=== PATIENT | male | born 1955 | race African-American/Black ===

== ENCOUNTER 2017-08-14 21:14 | Emergency (ER) | payer MEDICARE, MEDICAID ==
[~2017-08-14] VITALS: Ht 165.1 cm; Wt 75.0 kg
[~2017-08-14 21:14] MED LIST: ATEN50TA PO; CLOP75TA16 PO; ROSU10TA PO
[2017-08-14] MEDS ORDERED: KETOROLAC 60MG/2ML VIAL IM ONE (22:00)
[2017-08-14] MEDS ORDERED: MORPHINE SULFATE 10 MG/ML CPJ IM ONE (23:15)
[2017-08-15 00:17] VITALS: BP 137/66
== END 2017-08-15 00:23 | disposition home or self-care (01) ==
LOC: ER 21:14
DX: M25.552 Pain in left hip (principal); M54.9 Dorsalgia, unspecified
CPT/HCPCS: 73502; 96372; 99284; J1885; J2270

== ENCOUNTER 2017-11-20 11:32 | Day surgery (SDC) | payer MEDICARE, MEDICAID ==
[~2017-11-20] VITALS: Ht 177.8 cm; Wt 72.6 kg
[2017-11-20] MEDS ORDERED: HEPARIN 1,000 UNITS PREMIX 0 ML IV ONE (12:43)
[2017-11-20] MEDS ORDERED: LIDOCAINE HCL 1% 20ML VIAL (Pyxis) INJ ONE (12:43)
[2017-11-20] MEDS ORDERED: ASPI-1160 PO (13:03)
[2017-11-20] MEDS ORDERED: OXYC30TA89 PO (13:03)
[2017-11-20] MEDS ORDERED: IOHEXOL-300 100 ML BOTTLE ONE (13:08)
[2017-11-20] MEDS ORDERED: FENTANYL CITRATE/PF 50MCG/ML 2ML VIAL ONE (13:18)
[2017-11-20] MEDS ORDERED: MIDAZOLAM HCL 2 MG/2 ML VIAL ONE (13:18)
[2017-11-20] MEDS ORDERED: NITROGLYCERIN 50MCG/ML 10ML VIAL (CATH LAB) IV ONE (13:22)
[2017-11-20] MEDS ORDERED: NICARDIPINE 100MCG/ML 10ML VIAL (CATH LAB) IV ONE (13:22)
[2017-11-20] MEDS ORDERED: HYDROMORPHONE HCL/PF 2MG/ML (OR) ONE (13:32)
[2017-11-20] MEDS ORDERED: MORPHINE SULFATE 4 MG/ML CPJ (NOT FOR IM USE) IV PRN (14:15)
[2017-11-20 16:45] VITALS: BP 141/89
[2017-12-02] MEDS ORDERED: LIDO700A30 TP (13:52)
[2017-12-02] MEDS ORDERED: TEMA30CA PO (13:52)
== END 2017-11-20 19:58 | disposition home or self-care (01) ==
LOC: CCL 11:32
PROVIDERS: ATTEND Specialist
DX: I25.10 Atherosclerotic heart disease of native coronary artery without angina pectoris (principal); F17.210 Nicotine dependence, cigarettes, uncomplicated; M47.816 Spondylosis without myelopathy or radiculopathy, lumbar region; I10 Essential (primary) hypertension; I73.9 Peripheral vascular disease, unspecified; Z85.46 Personal history of malignant neoplasm of prostate; Z95.1 Presence of aortocoronary bypass graft; Z79.82 Long term (current) use of aspirin; Z79.899 Other long term (current) drug therapy; Z88.6 Allergy status to analgesic agent
CPT/HCPCS: 93455; 99152; 99153; C1760; C1769; C1887; C1893; J1170; J1644; J2250; J2270; J3010; J3490; Q9967

== ENCOUNTER → 2017-11-27 | Outpatient (CLI) | payer MEDICARE, MEDICAID ==
[~2017-11-27] MED LIST changes: +ALBU6.7H9 IH; +ALBUTEROL 90MCG/PUFF 17GM INHALER INH ONE; +ASPI-1160 PO; +BACITRACIN 50,000 UNITS/VIAL ONE; +BUPIVACAINE HCL/EPINEPHRINE 0.5%/0.0005 30ML ONE; +GELATIN SPONGE,COMPRESSED SZ 100 ONE; +LIDO700A30 TP; +LIDOCAINE HCL/EPINEPHRINE 1%-EPI 1:100,000 20 ML VIAL ONE; +NORMAL SALINE 0.9% 10 ML SYR ONE; +OXYC30TA89 PO; +TEMA30CA PO; +THROMBIN (BOVINE) 5000 UNITS/VIAL TOP ONE
== END | disposition home or self-care (01) ==
LOC: RAD 11:01
PROVIDERS: ATTEND Specialist
DX: R05 Cough (principal); Z79.82 Long term (current) use of aspirin
CPT/HCPCS: 71046

== ENCOUNTER 2017-12-03 05:18 | Inpatient (IN) | payer MEDICARE, MEDICAID ==
[2017-12-03] VITALS (11 sets, daily range): BP systolic 114–155; BP diastolic 58–101
[~2017-12-03] VITALS: Ht 172.7 cm; Wt 82.6 kg
[~2017-12-03 05:18] MED LIST changes: -ALBU6.7H9 IH; -ALBUTEROL 90MCG/PUFF 17GM INHALER INH ONE; -BACITRACIN 50,000 UNITS/VIAL ONE; -BUPIVACAINE HCL/EPINEPHRINE 0.5%/0.0005 30ML ONE; -GELATIN SPONGE,COMPRESSED SZ 100 ONE; -LIDOCAINE HCL/EPINEPHRINE 1%-EPI 1:100,000 20 ML VIAL ONE; -NORMAL SALINE 0.9% 10 ML SYR ONE; -THROMBIN (BOVINE) 5000 UNITS/VIAL TOP ONE
[2017-12-03] MEDS ORDERED: LACTATED RINGERS 1,000 ML IV SCH (06:15)
[2017-12-03] MEDS ORDERED: ALBU6.7H9 IH (06:45)
[2017-12-03] MEDS ORDERED: ROCURONIUM BROMIDE 10MG/ML VIAL 5ML IV ONE ×2 (06:47→07:33)
[2017-12-03] MEDS ORDERED: FENTANYL CITRATE/PF 50MCG/ML 5ML VIAL ONE (06:47)
[2017-12-03] MEDS ORDERED: HYDROMORPHONE HCL/PF 2MG/ML (OR) ONE (06:47)
[2017-12-03] MEDS ORDERED: PROPOFOL 200MG/20ML VIAL IV ONE ×2 (06:47→09:14)
[2017-12-03] MEDS ORDERED: MIDAZOLAM HCL 2 MG/2 ML VIAL ONE (06:49)
[2017-12-03] MEDS ORDERED: IPRATROPIUM/ALBUTEROL 0.5-3(2.5)MG/3ML NEB INH PRN (07:00)
[2017-12-03] MEDS ORDERED: ONDANSETRON HCL 4MG/2ML VIAL IV PRN (07:00)
[2017-12-03] MEDS ORDERED: GLYCOPYRROLATE 0.2 MG/ML 2ML VIAL ONE (09:22)
[2017-12-03] MEDS ORDERED: NEOSTIGMINE METHYLSULFATE 1MG/ML 10 ML VIAL ONE (09:22)
[2017-12-03] MEDS ORDERED: ESMOLOL HCL 10MG/ML 10ML VIAL IV ONE (09:58)
[2017-12-03] MEDS ORDERED: CEFAZOLIN SODIUM 1000MG/VIAL ONE (09:58)
[2017-12-03] MEDS ORDERED: LIDOCAINE HCL/PF 1% 10 MG/ML 5ML VIAL ONE (09:58)
[2017-12-03] MEDS: DEXT 5%/LACTATED RINGERS 1,000 ML IV SCH ×3 (10:30→23:20)
[2017-12-03] MEDS ORDERED: NICARDIPINE 100 MG in SODIUM CHLORIDE 0.9% 60 ML IV PRN ×2 (11:00→11:15)
[2017-12-03] MEDS ORDERED: NALOXONE INJ IV PRN (11:15)
[2017-12-03] MEDS ORDERED: DIPHENHYDRAMINE INJ IV PRN (11:15)
[2017-12-03] MEDS ORDERED: IPRATROPIUM/ALBUTEROL 0.5-3(2.5)MG/3ML NEB HHN PRN (11:15)
[2017-12-03] MEDS ORDERED: BISACODYL 5MG TABLET PO PRN (11:15)
[2017-12-03] MEDS ORDERED: ONDANSETRON INJ IV PRN (11:15)
[2017-12-03] MEDS: HYDROMORPHONE PCA 10MG/50ML IV PRN ×2 (11:51→23:57)
[2017-12-03 13:11] LABS: HEMOGLOBIN. 8.3 g/dL (14.0-18.0); MEAN CORPUSCULAR HEMOGLOBIN 25.9 pg (28.0-32.0); MEAN CORPUSCULAR VOLUME 80.7 fL (80.0-94.0); MEAN PLATELET VOLUME 6.7 fl (7.4-10.4); PLATELET 632 x1000/uL (130-400); RED BLOOD CELL COUNT 3.22 mill/uL (4.7-6.1); RED CELL DISTRIBUTION WIDTH 20.9 % (11.6-14.6)
[2017-12-03 13:20] LABS: CHLORIDE 109 mEq/L (98-107)
[2017-12-03] MEDS ORDERED: CEFAZOLIN SODIUM 1000MG/VIAL IV SCH (14:00)
[2017-12-03 14:21] LABS: PLATELET ESTIMATE INCREASED
[2017-12-03] MEDS: NICOTINE 14MG PATCH TD SCH (15:14)
[2017-12-03] MEDS: OXYCODONE HCL 5MG TABLET PO PRN (18:21)
[2017-12-03] MEDS: CEFAZOLIN 1000MG PREMIX 50 ML IV SCH (18:21)
[2017-12-04] VITALS (40 sets, daily range): BP systolic 82–161; BP diastolic 27–91
[2017-12-04] MEDS: CEFAZOLIN 1000MG PREMIX 50 ML IV SCH ×3 (01:25→17:29)
[2017-12-04] MEDS: OXYCODONE HCL 5MG TABLET PO PRN ×2 (06:04)
[2017-12-04] MEDS: DEXT 5%/LACTATED RINGERS 1,000 ML IV SCH ×2 (06:04→21:54)
[2017-12-04 06:46] LABS: BASOPHILS % 0.4 % (0.0-2.0); EOSINOPHILS % 0.2 % (0.0-5.0); HEMATOCRIT. 24.7 % (42.0-52.0); MEAN CORPUSCULAR VOLUME 80.2 fL (80.0-94.0); MEAN PLATELET VOLUME 6.7 fl (7.4-10.4); MONOCYTES % 8.5 % (2.0-8.0); NEUTROPHILS % 56.9 % (40.0-76.0); PLATELET 576 x1000/uL (130-400); RED BLOOD CELL COUNT 3.08 mill/uL (4.7-6.1); RED CELL DISTRIBUTION WIDTH 21.2 % (11.6-14.6)
[2017-12-04 06:51] LABS: CHLORIDE 102 mEq/L (98-107)
[2017-12-04] MEDS: HYDROMORPHONE HCL/PF 2MG/ML CPJ IV PRN ×3 (08:51→17:26)
[2017-12-04] MEDS: NICOTINE 14MG PATCH TD SCH (08:51)
[2017-12-04] MEDS: DOCUSATE SODIUM 250MG CAPSULE PO SCH (08:51)
[2017-12-04] MEDS: ATENOLOL 25MG TABLET PO SCH (08:52)
[2017-12-04] MEDS: CYCLOBENZAPRINE 10MG TABLET PO SCH ×2 (10:34→19:47)
[2017-12-04] MEDS ORDERED: OXYCODONE HCL 20MG TABLET SR 12HR PO NR (11:30)
[2017-12-04] MEDS ORDERED: OXYCODONE HCL 40 MG TABLET SR 12HR PO NR (11:30)
[2017-12-04] MEDS ORDERED: OXYCODONE HCL 40 MG TABLET SR 12HR PO SCH (21:00)
[2017-12-04] MEDS: OXYCODONE HCL 20MG TABLET SR 12HR PO SCH (21:54)
[2017-12-05] VITALS (35 sets, daily range): BP systolic 96–144; BP diastolic 14–89
[2017-12-05] MEDS: CYCLOBENZAPRINE 10MG TABLET PO SCH ×3 (02:21→18:45)
[2017-12-05] MEDS: CEFAZOLIN 1000MG PREMIX 50 ML IV SCH ×2 (02:21→09:27)
[2017-12-05] MEDS: HYDROMORPHONE HCL/PF 2MG/ML CPJ IV PRN ×2 (02:29→06:19)
[2017-12-05 05:55] LABS: HEMATOCRIT. 23.8 % (42.0-52.0); HEMOGLOBIN. 7.5 g/dL (14.0-18.0); MEAN CORPUSCULAR HEMOGLOBIN 25.3 pg (28.0-32.0); MEAN CORPUSCULAR VOLUME 80.1 fL (80.0-94.0); MEAN PLATELET VOLUME 6.8 fl (7.4-10.4); PLATELET 543 x1000/uL (130-400); RED BLOOD CELL COUNT 2.98 mill/uL (4.7-6.1); RED CELL DISTRIBUTION WIDTH 21.4 % (11.6-14.6)
[2017-12-05] MEDS: OMEPRAZOLE 20MG CAPSULE EXTENDED RELEASE PO SCH (06:16)
[2017-12-05] MEDS: DEXT 5%/LACTATED RINGERS 1,000 ML IV SCH (06:19)
[2017-12-05 06:41] LABS: CHLORIDE 101 mEq/L (98-107)
[2017-12-05 07:59] LABS: PLATELET ESTIMATE INCREASED
[2017-12-05] MEDS: ATENOLOL 25MG TABLET PO SCH (08:43)
[2017-12-05] MEDS: OXYCODONE HCL 20MG TABLET SR 12HR PO SCH ×2 (08:52→21:24)
[2017-12-05] MEDS: NICOTINE 14MG PATCH TD SCH (08:52)
[2017-12-05] MEDS: DOCUSATE SODIUM 250MG CAPSULE PO SCH (09:27)
[2017-12-06] VITALS (9 sets, daily range): BP systolic 92–144; BP diastolic 42–68
[2017-12-06] MEDS ORDERED: SODIUM CHLORIDE 0.9% 1000ML BAG (SEPSIS BOLUS) IV NR (01:00)
[2017-12-06] MEDS: SODIUM CHLORIDE 0.9% 1,000 ML IV SCH (02:26)
[2017-12-06] MEDS: CYCLOBENZAPRINE 10MG TABLET PO SCH ×3 (02:26→18:51)
[2017-12-06] MEDS: OMEPRAZOLE 20MG CAPSULE EXTENDED RELEASE PO SCH (06:33)
[2017-12-06 07:25] LABS: CHLORIDE 102 mEq/L (98-107)
[2017-12-06 07:31] LABS: MEAN CORPUSCULAR VOLUME 78.8 fL (80.0-94.0); MEAN PLATELET VOLUME 6.9 fl (7.4-10.4); PLATELET 505 x1000/uL (130-400); RED BLOOD CELL COUNT 2.65 mill/uL (4.7-6.1); RED CELL DISTRIBUTION WIDTH 21.8 % (11.6-14.6)
[2017-12-06 07:38] LABS: HEMATOCRIT. 20.9 % (42.0-52.0); HEMOGLOBIN. 6.6 g/dL (14.0-18.0)
[2017-12-06] MEDS: ATENOLOL 25MG TABLET PO SCH (09:00)
[2017-12-06 10:04] LABS: PLATELET ESTIMATE INCREASED
[2017-12-06] MEDS: DOCUSATE SODIUM 250MG CAPSULE PO SCH (11:50)
[2017-12-06] MEDS: NICOTINE 14MG PATCH TD SCH (11:50)
[2017-12-06] MEDS: OXYCODONE HCL 20MG TABLET SR 12HR PO SCH ×2 (11:58→21:22)
[2017-12-06 18:09] LABS: HEMATOCRIT 23.5 % (42.0-52.0); HEMOGLOBIN 7.7 g/dL (14.0-18.0)
[2017-12-07] VITALS: BP 107/55
[2017-12-07] MEDS: SODIUM CHLORIDE 0.9% 1,000 ML IV SCH ×2 (02:00→11:58)
[2017-12-07] MEDS: CYCLOBENZAPRINE 10MG TABLET PO SCH ×3 (02:14→18:25)
[2017-12-07 04:00] VITALS: BP 104/47
[2017-12-07] MEDS: OMEPRAZOLE 20MG CAPSULE EXTENDED RELEASE PO SCH (06:29)
[2017-12-07 07:20] LABS: HEMATOCRIT. 23.2 % (42.0-52.0); MEAN CORPUSCULAR HEMOGLOBIN 27.1 pg (28.0-32.0); MEAN CORPUSCULAR VOLUME 78.7 fL (80.0-94.0); MEAN PLATELET VOLUME 6.8 fl (7.4-10.4); PLATELET 505 x1000/uL (130-400); RED BLOOD CELL COUNT 2.94 mill/uL (4.7-6.1); RED CELL DISTRIBUTION WIDTH 20.7 % (11.6-14.6)
[2017-12-07 07:37] VITALS: BP 127/63
[2017-12-07] MEDS: ATENOLOL 25MG TABLET PO SCH (09:00)
[2017-12-07 11:25] LABS: CHLORIDE 99 mEq/L (98-107)
[2017-12-07] MEDS: DOCUSATE SODIUM 250MG CAPSULE PO SCH (11:54)
[2017-12-07] MEDS: NICOTINE 14MG PATCH TD SCH (11:55)
[2017-12-07] MEDS: OXYCODONE HCL 20MG TABLET SR 12HR PO SCH ×2 (11:56→21:17)
[2017-12-07 12:00] VITALS: BP 116/47
[2017-12-07 13:48] LABS: PLATELET ESTIMATE INCREASED
[2017-12-07 16:00] VITALS: BP 107/63
[2017-12-07] MEDS: HYDROMORPHONE HCL/PF 2MG/ML CPJ IV PRN (18:32)
[2017-12-08] MEDS: CYCLOBENZAPRINE 10MG TABLET PO SCH ×3 (03:28→18:00)
[2017-12-08 03:34] VITALS: BP 113/51
[2017-12-08] MEDS: OMEPRAZOLE 20MG CAPSULE EXTENDED RELEASE PO SCH (06:32)
[2017-12-08 06:45] VITALS: BP 133/57
[2017-12-08 07:16] LABS: HEMATOCRIT. 23.7 % (42.0-52.0); HEMOGLOBIN. 7.7 g/dL (14.0-18.0); MEAN CORPUSCULAR HEMOGLOBIN 25.6 pg (28.0-32.0); MEAN CORPUSCULAR VOLUME 78.4 fL (80.0-94.0); MEAN PLATELET VOLUME 6.8 fl (7.4-10.4); PLATELET 525 x1000/uL (130-400); RED BLOOD CELL COUNT 3.02 mill/uL (4.7-6.1); RED CELL DISTRIBUTION WIDTH 21.3 % (11.6-14.6)
[2017-12-08 08:00] VITALS: BP 113/60
[2017-12-08] MEDS: DOCUSATE SODIUM 250MG CAPSULE PO SCH (08:22)
[2017-12-08] MEDS: OXYCODONE HCL 20MG TABLET SR 12HR PO SCH ×2 (08:22→21:24)
[2017-12-08] MEDS: ATENOLOL 25MG TABLET PO SCH (08:23)
[2017-12-08] MEDS: NICOTINE 14MG PATCH TD SCH (08:24)
[2017-12-08 12:00] VITALS: BP 114/56
[2017-12-08] MEDS ORDERED: IBUPROFEN 600MG TABLET PO PRN ×2 (15:00→15:45)
[2017-12-08] MEDS: SODIUM CHLORIDE 0.9% 1,000 ML IV SCH ×2 (15:30→21:25)
[2017-12-08 16:00] VITALS: BP 111/71
[2017-12-08 16:16] LABS: PLATELET ESTIMATE NORMAL
[2017-12-08] MEDS: PIPERACILLIN/TAZ 3.375G PREMIX 50 ML IV SCH ×2 (17:57→21:25)
[2017-12-08 20:00] VITALS: BP 95/47
[2017-12-09] VITALS: BP 101/56
[2017-12-09 04:00] VITALS: BP 104/45
[2017-12-09] MEDS: CYCLOBENZAPRINE 10MG TABLET PO SCH ×3 (04:08→20:08)
[2017-12-09] MEDS: SODIUM CHLORIDE 0.9% 1,000 ML IV SCH ×2 (04:11→04:24)
[2017-12-09] MEDS: HYDROMORPHONE HCL/PF 2MG/ML CPJ IV PRN (04:12)
[2017-12-09] MEDS: PIPERACILLIN/TAZ 3.375G PREMIX 50 ML IV SCH ×3 (04:23→15:00)
[2017-12-09 08:00] VITALS: BP 115/54
[2017-12-09] MEDS: OXYCODONE HCL 20MG TABLET SR 12HR PO SCH ×2 (08:20→20:08)
[2017-12-09] MEDS: DOCUSATE SODIUM 250MG CAPSULE PO SCH (08:27)
[2017-12-09] MEDS: OMEPRAZOLE 20MG CAPSULE EXTENDED RELEASE PO SCH (08:27)
[2017-12-09] MEDS: ATENOLOL 25MG TABLET PO SCH (08:28)
[2017-12-09] MEDS: NICOTINE 14MG PATCH TD SCH (08:32)
[2017-12-09 12:00] VITALS: BP 98/50
[2017-12-09 12:33] LABS: HEMATOCRIT. 22.9 % (42.0-52.0); HEMOGLOBIN. 7.5 g/dL (14.0-18.0); MEAN CORPUSCULAR HEMOGLOBIN 25.9 pg (28.0-32.0); MEAN PLATELET VOLUME 6.6 fl (7.4-10.4); PLATELET 514 x1000/uL (130-400); RED CELL DISTRIBUTION WIDTH 21.5 % (11.6-14.6)
[2017-12-09 12:40] LABS: CHLORIDE 98 mEq/L (98-107)
[2017-12-09 12:51] LABS: TOTAL IRON BINDING CAPACITY 282 ug/dL (250-450)
[2017-12-09 13:17] LABS: VITAMIN B12 SERUM 878 pg/mL (211-911)
[2017-12-09 14:13] LABS: FOLIC ACID (FOLATE) SERUM > 20.00 ng/mL (>5.38)
[2017-12-09 15:24] LABS: PLATELET ESTIMATE INCREASED
[2017-12-09] MEDS ORDERED: SENNOSIDES/DOCUSATE SOD 8.6/50MG TABLET PO PRN (15:30)
[2017-12-09 16:00] VITALS: BP 109/41
[2017-12-09] MEDS ORDERED: SODIUM CHLORIDE 0.9% 500 ML IV NR (16:30)
[2017-12-09 20:08] VITALS: BP 120/63
[2017-12-10] MEDS ORDERED: SODIUM CHLORIDE 0.9% 500 ML IV ONE (16:30)
== END 2017-12-09 21:20 | disposition left against medical advice (07) | DRG 459 ==
LOC: ORIP 05:18 → MICUSO 11:15 → 6EST 12-05 15:04
PROVIDERS: ADMIT Internal Medicine; ATTEND Internal Medicine
PROC: 0SG3071 Fusion of Lumbosacral Joint with Autologous Tissue Substitute, Posterior Approach, Posterior Column, Open Approach (ICD-10-PCS; 2017-12-03)
PROC: 0SP004Z Removal of Internal Fixation Device from Lumbar Vertebral Joint, Open Approach (ICD-10-PCS; 2017-12-03)
PROC: 0SG0071 Fusion of Lumbar Vertebral Joint with Autologous Tissue Substitute, Posterior Approach, Posterior Column, Open Approach (ICD-10-PCS; principal; 2017-12-03 07:00)
PROC: 30233N1 Transfusion of Nonautologous Red Blood Cells into Peripheral Vein, Percutaneous Approach (ICD-10-PCS; 2017-12-06)
DX: M47.816 Spondylosis without myelopathy or radiculopathy, lumbar region (principal); R53.2 Functional quadriplegia; G82.20 Paraplegia, unspecified; M54.5 Low back pain; R26.2 Difficulty in walking, not elsewhere classified; I10 Essential (primary) hypertension; D64.9 Anemia, unspecified; H10.33 Unspecified acute conjunctivitis, bilateral; K59.00 Constipation, unspecified; Z53.21 Procedure and treatment not carried out due to patient leaving prior to being seen by health care provider; I73.9 Peripheral vascular disease, unspecified; F17.210 Nicotine dependence, cigarettes, uncomplicated; G89.29 Other chronic pain; I25.10 Atherosclerotic heart disease of native coronary artery without angina pectoris; Z92.3 Personal history of irradiation; Z85.46 Personal history of malignant neoplasm of prostate; Z95.1 Presence of aortocoronary bypass graft; Z88.6 Allergy status to analgesic agent; Z71.6 Tobacco abuse counseling
CPT/HCPCS: 36415; 71045; 72100; 80048; 80053; 82607; 82746; 83540; 83550; 83605; 84145; 85014; 85018; 85025; 86850; 86900; 86920; 87040; 87086; 88300; 93970; 97116; 97162; 97166; 97530; 97535; 97760; A4216; C1893; J0171; J0690; J1170; J2250; J2405; J2543; J2704; J2710; J3010; J3490; J7030; J7040; J7050; J7120; P9016